=== PATIENT | female | born 1940 | race Caucasian/White ===

== ENCOUNTER 2016-05-30 07:05 | Emergency (ER) | payer MEDICARE, OTHER ==
[~2016-05-30] VITALS: Ht 157.5 cm; Wt 55.7 kg
[~2016-05-30 07:05] MED LIST: CARD120T4; GLUCTAB
[2016-05-30 07:08] VITALS: PULSE 85; RESP 17; TEMP 98.6; O2SAT 99
[2016-05-30] MEDS ORDERED: SODIUM CHLOR 0.9% 1000 ML INJ 1,000 ML IV SCH (07:23)
--- NOTE | 2016-05-30 07:27 | PD ---
HPI Chief Complaint: Abdominal Pain Time Seen by Provider: 07:18 Travel History International Travel<30 days: No Contact w/Intl Traveler<30days: No Traveled to known affect area: No History of Present Illness HPI The patient is a 76-year-old female who presents emergency department for abdominal pain. The patient states her abdominal pain started last night while she was sitting down, reading a book. The abdominal pain is epigastric, burning, nonradiating, and constant. The patient states she took Tums this morning with subsequent nausea and vomiting, but the nausea and vomiting have resolved. The patient denies any diarrhea or change in bowel habits. The patient denies any history of previous abdominal surgeries. Patient denies any history pancreatitis, biliary colic, or AAA. The patient denies any associated chest pain or shortness of breath. The patient denies any dysuria, frequency, or urgency, notes a prolonged history of urinating at night. The patient's primary physician is Ute Houser. The patient does have a history of diabetes for which she takes Janumet. PFSH Past Medical History Diabetes: Yes Hypertension: Yes ?: Not LMP: [employer] Social History Alcohol Use: No Tobacco Use: No Substance Use: No Allergies-Medications (Allergen,Severity, Reaction): Coded Allergies: Lyrica (Verified Allergy, Mild, 05/30/16) Sulfa (Verified Allergy, Mild, 05/30/16) Reported Meds & Prescriptions Reported Meds & Active Scripts Active Reported Aspirin 81 Mg Tabdr 81 Mg PO DAILY [blood pressure med#2] Unknown Strength Unknown Dose PO DAILY [blood pressure med] Unknown Strength Unknown Dose PO DAILY Pravastatin Unknown Strength Tab Unknown Dose PO DAILY Januvia (Sitagliptin Phosphate) Unknown Strength Tab Unknown Dose PO DAILY Review of Systems Except as stated in HPI: all other systems reviewed are Neg General / Constitutional: No: Fever Cardiovascular: No: Chest Pain or Discomfort Respiratory: No: Shortness of Breath Gastrointestinal: Positive: Nausea, Vomiting (after taking Tums), Abdominal Pain, No: Diarrhea, Changes in Bowel Habits Genitourinary: Positive: Frequency (at night, has been happening for years), No: Dysuria Skin: No Rash Physical Exam Narrative GENERAL: Awake, alert, pleasant 76-year-old female who appears her stated age and is in no acute respiratory distress. SKIN: Focused skin assessment warm/dry. HEAD: Atraumatic. Normocephalic. EYES: No injection or drainage. ENT: No nasal bleeding or discharge. Mucous membranes pink and moist. NECK: Trachea midline. No JVD. CARDIOVASCULAR: Regular rate and rhythm. No murmur appreciated. RESPIRATORY: No accessory muscle use. Clear to auscultation. Breath sounds equal bilaterally. GASTROINTESTINAL: Abdomen soft, tender palpation epigastrium. Negative Guy' s. Negative McBurney's. No rebound tenderness. MUSCULOSKELETAL: No obvious deformities. No clubbing. No cyanosis. No edema. NEUROLOGICAL: Awake and alert. No obvious cranial nerve deficits. Motor grossly within normal limits. Normal speech. PSYCHIATRIC: Appropriate mood and affect; insight and judgment normal. Data Data Last Documented VS Vital Signs Date Time Temp Pulse Resp B/P Pulse Ox O2 Delivery O2 Flow Rate FiO2 05/30/16 09:19 86 16 138/74 98 Room Air 05/30/16 07:08 98.6 Orders Complete Blood Count With Diff (05/30/16 07:23) Comprehensive Metabolic Panel (05/30/16 07:23) Lipase (05/30/16 07:23) Lactic Acid (05/30/16 07:23) Urinalysis - C+S If Indicated (05/30/16 07:23) Ct Abd/Pel W Iv Contrast(Rout) (05/30/16 07:23) Iv Access Insert/Monitor (05/30/16 07:23) Ecg Monitoring (05/30/16 07:23) Oximetry (05/30/16 07:23) Morphine Inj (Morphine Inj) (05/30/16 07:30) Ondansetron Inj (Zofran Inj) (05/30/16 07:30) Sodium Chlor 0.9% 1000 Ml Inj (Ns 1000 M (05/30/16 07:23) Sodium Chloride 0.9% Flush (Ns Flush) (05/30/16 07:30) Electrocardiogram (05/30/16 07:23) Famotidine Inj (Pepcid Inj) (05/30/16 07:30) Al-Mag Hy-Si 40-40-4 Mg/Ml Liq (Mag-Al P (05/30/16 07:30) Lidocaine 2% Viscous (Xylocaine 2% Visco (05/30/16 07:30) Troponin I (05/30/16 07:23) Labetalol Inj (Trandate Inj) (05/30/16 09:00) Iohexol 350 Inj (Omnipaque 350 Inj) (05/30/16 08:57) Labs Laboratory Tests Test 05/30/16 05/30/16 07:50 08:10 White Blood Count 13.5 TH/MM3 Red Blood Count 4.33 MIL/MM3 Hemoglobin 13.1 GM/DL Hematocrit 39.2 % Mean Corpuscular Volume 90.6 FL Mean Corpuscular Hemoglobin 30.2 PG Mean Corpuscular Hemoglobin 33.3 % Concent Red Cell Distribution Width 12.4 % Platelet Count 242 TH/MM3 Mean Platelet Volume 8.8 FL Neutrophils (%) (Auto) 89.0 % Lymphocytes (%) (Auto) 7.2 % Monocytes (%) (Auto) 2.3 % Eosinophils (%) (Auto) 0.6 % Basophils (%) (Auto) 0.9 % Neutrophils # (Auto) 12.0 TH/MM3 Lymphocytes # (Auto) 1.0 TH/MM3 Monocytes # (Auto) 0.3 TH/MM3 Eosinophils # (Auto) 0.1 TH/MM3 Basophils # (Auto) 0.1 TH/MM3 CBC Comment DIFF FINAL Differential Comment Sodium Level 142 MEQ/L Potassium Level 3.7 MEQ/L Chloride Level 106 MEQ/L Carbon Dioxide Level 22.5 MEQ/L Anion Gap 14 MEQ/L Blood Urea Nitrogen 22 MG/DL Creatinine 0.80 MG/DL Estimat Glomerular Filtration 70 ML/MIN Rate Random Glucose 158 MG/DL Lactic Acid Level 2.1 mmol/L Calcium Level 9.0 MG/DL Total Bilirubin 0.3 MG/DL Aspartate Amino Transf 21 U/L (AST/SGOT) Alanine Aminotransferase 28 U/L (ALT/SGPT) Alkaline Phosphatase 82 U/L Troponin I LESS THAN 0.02 NG/ML Total Protein 7.5 GM/DL Albumin 3.9 GM/DL Lipase 206 U/L Urine Collection Type CLEAN CATCH Urine Color YELLOW Urine Turbidity CLEAR Urine pH 6.0 Urine Specific [place] 1.017 Urine Protein 100 mg/dL Urine Glucose (UA) NEG mg/dL Urine Ketones NEG mg/dL Urine Occult Blood TRACE Urine Nitrite NEG Urine Bilirubin NEG Urine Leukocyte Esterase NEG Urine RBC 10-14 /hpf Urine WBC 0-2 /hpf Urine Squamous Epithelial > 8 /hpf Cells Urine Bacteria FEW /hpf Microscopic Urinalysis Comment CULT NOT INDICATED Urine Collection Time 08:10 [facility] Medical Decision Making Medical Screen Exam Complete: Yes Emergency Medical Condition: Yes Medical Record Reviewed: Yes Interpretation(s) EKG reveals normal sinus rhythm with a rate 88. Short MA interval 106 ms. No delta wave noted. Nonspecific T-wave changes. Laboratory Tests Test 05/30/16 05/30/16 07:50 08:10 White Blood Count 13.5 TH/MM3 Red Blood Count 4.33 MIL/MM3 Hemoglobin 13.1 GM/DL Hematocrit 39.2 % Mean Corpuscular Volume 90.6 FL Mean Corpuscular Hemoglobin 30.2 PG Mean Corpuscular Hemoglobin 33.3 % Concent Red Cell Distribution Width 12.4 % Platelet Count 242 TH/MM3 Mean Platelet Volume 8.8 FL Neutrophils (%) (Auto) 89.0 % Lymphocytes (%) (Auto) 7.2 % Monocytes (%) (Auto) 2.3 % Eosinophils (%) (Auto) 0.6 % Basophils (%) (Auto) 0.9 % Neutrophils # (Auto) 12.0 TH/MM3 Lymphocytes # (Auto) 1.0 TH/MM3 Monocytes # (Auto) 0.3 TH/MM3 Eosinophils # (Auto) 0.1 TH/MM3 Basophils # (Auto) 0.1 TH/MM3 CBC Comment DIFF FINAL Differential Comment Sodium Level 142 MEQ/L Potassium Level 3.7 MEQ/L Chloride Level 106 MEQ/L Carbon Dioxide Level 22.5 MEQ/L Anion Gap 14 MEQ/L Blood Urea Nitrogen 22 MG/DL Creatinine 0.80 MG/DL Estimat Glomerular Filtration 70 ML/MIN Rate Random Glucose 158 MG/DL Lactic Acid Level 2.1 mmol/L Calcium Level 9.0 MG/DL Total Bilirubin 0.3 MG/DL Aspartate Amino Transf 21 U/L (AST/SGOT) Alanine Aminotransferase 28 U/L (ALT/SGPT) Alkaline Phosphatase 82 U/L Troponin I LESS THAN 0.02 NG/ML Total Protein 7.5 GM/DL Albumin 3.9 GM/DL Lipase 206 U/L Urine Collection Type CLEAN CATCH Urine Color YELLOW Urine Turbidity CLEAR Urine pH 6.0 Urine Specific [place] 1.017 Urine Protein 100 mg/dL Urine Glucose (UA) NEG mg/dL Urine Ketones NEG mg/dL Urine Occult Blood TRACE Urine Nitrite NEG Urine Bilirubin NEG Urine Leukocyte Esterase NEG Urine RBC 10-14 /hpf Urine WBC 0-2 /hpf Urine Squamous Epithelial > 8 /hpf Cells Urine Bacteria FEW /hpf Microscopic Urinalysis Comment CULT NOT INDICATED Urine Collection Time 08:10 CT the abdomen and pelvis reveals cholelithiasis. The gallbladder demonstrates multiple stones without gallbladder wall thickening or pericholecystic fluid. Differential Diagnosis Differential diagnosis includes pancreatitis, gastritis, peptic ulcer disease, medication side effect from Janumet, biliary colic, AAA, inferior myocardial infarction. Narrative Course IV was established, labs are drawn and sent, and the patient was placed on cardiac telemetry monitoring and continuous pulse oximetry monitoring. EKG was ordered and interpreted. The patient was administered a GI cocktail, Pepcid, morphine, Zofran, and IV fluids. CT with IV contrast was ordered to evaluate for AAA and pancreatitis. Laboratory evaluation reveals mildly elevated white count, however, LFTs and lipase are unremarkable. CT the abdomen and pelvis reveals cholelithiasis but no gallbladder wall thickening or pericholecystic fluid. Patient may have biliary colic versus gastritis. The patient was reevaluated after CT of the abdomen and pelvis, her symptoms had resolved, her pain was a 0. Patient is stable for outpatient follow-up with her primary physician. She may need general surgery follow-up if she has postprandial symptoms for symptomatically cholelithiasis. Diagnosis Primary Impression: Abdominal pain Qualified Code: R10.13 - Epigastric pain Additional Impression: Cholelithiasis Qualified Code: K80.20 - Calculus of gallbladder without cholecystitis without obstruction Patient Instructions: General Instructions Additional Instructions: Please provide a patient a copy of her CT results and lab results at discharge. Medications as directed. Follow-up with your primary physician. Follow-up with general surgery if you have persistent pain after meals. Return if symptoms worsen or progress. Med/Other Pt SpecificInfo: Prescription(s) given Scripts Ranitidine (Zantac 150 Maximum Strength)150 Mg [id number] Mg PO BID 14 Days Prov:Ata Rivers MD 05/30/16 Hydrocodone-Acetaminophen ([place])5-325 mg Tab1 Tab PO Q6H PRN (PAIN) #12 TAB Ref 0 Prov:Ata Rivers MD 05/30/16 Ondansetron Odt (Zofran Odt)4 Mg Tab4 Mg SL Q6HR PRN (Nausea/Vomiting) #7 TAB Ref 0 Prov:Ata Rivers MD 05/30/16 Disposition: 01 DISCHARGE HOME Condition: Stable Ata Rivers MD May 30, 2016 07:27
[2016-05-30] MEDS ORDERED: MORPHINE SULFATE 4 MG/ML INJ IV PUSH ONE (07:30)
[2016-05-30] MEDS ORDERED: FAMOTIDINE 20 MG/2 ML VIAL IV PUSH ONE (07:30)
[2016-05-30] MEDS ORDERED: ONDANSETRON HCL 4 MG/2 ML VIAL IVP ONE (07:30)
[2016-05-30] MEDS ORDERED: SODIUM CHLORIDE 0.9% FLUSH 10 ML FLUSH IV FLUSH PRN (07:30)
[2016-05-30] MEDS ORDERED: ALUMINUM/MAGNESIUM/SIMETH 30 ML CUP PO ONE (07:30)
[2016-05-30] MEDS ORDERED: LIDOCAINE VISCOUS 2% SOLN 15 ML UDC PO ONE (07:30)
[2016-05-30 07:32] VITALS: RESP 16; O2SAT 99
[2016-05-30] MEDS ORDERED: blood pressure med PO (07:36)
[2016-05-30] MEDS ORDERED: SITA25 PO (07:36)
[2016-05-30] MEDS ORDERED: BLOOD PRESSURE MED PO (07:36)
[2016-05-30] MEDS ORDERED: PRAV10TA PO (07:36)
[2016-05-30 08:00] LABS: BASOPHIL # 0.1 TH/MM3 (0-0.2); BASOPHIL % 0.9 % (0.0-2.0); EOSINOPHIL # 0.1 TH/MM3 (0-0.4); EOSINOPHIL % 0.6 % (0.0-4.0); HEMATOCRIT 39.2 % (35.0-46.0); HEMO FLAGS DIFF FINAL; LYMPH % 7.2 % (9.0-44.0); MEAN CELL VOLUME 90.6 FL (80.0-100.0); MEAN CORPUSCULAR HEMOGLOBIN 30.2 PG (27.0-34.0); MEAN CORPUSCULAR HGB CONC 33.3 % (32.0-36.0); MONO % 2.3 % (0.0-8.0); PLATELET COUNT 242 TH/MM3 (150-450); RED BLOOD COUNT 4.33 MIL/MM3 (4.00-5.30); RED CELL DISTRIBUTION WIDTH 12.4 % (11.6-17.2); WHITE BLOOD COUNT 13.5 TH/MM3 (4.0-11.0)
[2016-05-30 08:08] LABS: CHLORIDE 106 MEQ/L (98-107); POTASSIUM 3.7 MEQ/L (3.5-5.1); SODIUM (NA) 142 MEQ/L (136-145)
[2016-05-30 08:12] LABS: ANION GAP 14 MEQ/L (5-15); BICARBONATE 22.5 MEQ/L (21.0-32.0)
[2016-05-30 08:13] LABS: BLOOD UREA NITROGEN 22 MG/DL (7-18)
[2016-05-30 08:15] LABS: ALT (GPT) 28 U/L (10-53); AST (GOT) 21 U/L (15-37); GLOMERULAR FILTRATION RATE 70 ML/MIN (>89)
[2016-05-30 08:17] LABS: TOTAL BILIRUBIN ADULT 0.3 MG/DL (0.2-1.0)
[2016-05-30 08:18] LABS: ALKALINE PHOSPHATASE 82 U/L (45-117)
[2016-05-30 08:23] LABS: BLOOD, URINE TRACE (NEG); GLUCOSE,URINE NEG (NEG); KETONE, URINE NEG (NEG); NITRITE,URINE NEG (NEG)
[2016-05-30 08:24] LABS: METHOD OF COLLECTION CLEAN CATCH; URINE COLOR YELLOW (YELLW/STRAW)
[2016-05-30 08:25] LABS: BACTERIA, URINE FEW /hpf; COMMENT (UR) CULT NOT INDICATED; CULTURE IF INDICATED CULT NOT INDICATED; SQUAMOUS EPITHELIAL CELL URINE > 8 /hpf (0-5); WBC, URINE 0-2 /hpf (0-5)
[2016-05-30 08:35] VITALS: BP 199/105; PULSE 100; RESP 16; O2SAT 99
[2016-05-30 08:54] VITALS: BP 211/83; PULSE 90; RESP 16; O2SAT 99
[2016-05-30] MEDS ORDERED: IOHEXOL 350 MG/ML 10 ML VIAL (for RAD DIAG) IV ONE (08:57)
[2016-05-30] MEDS ORDERED: LABETALOL HCL 100 MG/20 ML VIAL IV PUSH ONE (09:00)
[2016-05-30] MEDS ORDERED: ASPI1TAB69 PO (09:01)
[2016-05-30 09:12] VITALS: BP 204/95; PULSE 88; RESP 16; O2SAT 100
[2016-05-30 09:19] VITALS: BP 138/74; PULSE 86; RESP 16; O2SAT 98
--- NOTE | 2016-05-30 09:43 | RADHPO ---
EXAM DATE/TIME: 05/30/2016 08:34 [place] COMPARISON: No previous studies available for comparison. INDICATIONS : Right upper epigrastic pain. IV CONTRAST: 93 cc Omnipaque 350 (iohexol) IV ORAL CONTRAST: No oral contrast ingested. RADIATION DOSE: 5.98 CTDIvol (mGy) MEDICAL HISTORY : Hypertension. SURGICAL HISTORY : None. ENCOUNTER: Initial ACUITY: 1 day PAIN SCALE: 5/10 LOCATION: Right abdomen TECHNIQUE: Volumetric scanning of the abdomen and pelvis was performed. Using automated exposure control and adjustment of the mA and/or kV according to patient size, radiation dose was kept as low as reasonably achievable to obtain optimal diagnostic quality images. FINDINGS: CT Abdomen: The liver, spleen, pancreas, kidneys, adrenals are unremarkable. There is no evidence for any appreciable pathological adenopathy, free fluid, or bowel obstruction. Chronic vascular calcifi cations are present involving the aorta, iliac arteries without any significant stenosis or aneurysma l dilatations for technique. The gallbladder demonstrates multiple stones without gallbladder wall th ickening, or pericholecystic fluid. CT pelvis: There is no evidence for mass, abscess formation, or any significant adenopathy within the pelvis. There are degenerative changes and possible bulging discs in the lower lumbosacral spine not adequately characterized in addition to lumbar scoliosis convexity towards the left. The appendix ap pears intact without definite signs of appendicitis. CONCLUSION: Cholelithiasis. Lilia Schmitz MD on May 30, 2016 at 9:39 Board Certified Radiologist. This report was verified electronically.
[2016-05-30] MEDS ORDERED: NORC5TAB PO (09:47)
[2016-05-30] MEDS ORDERED: ZOFR4TAB3 SL (09:47)
[2016-05-30] MEDS ORDERED: ZANTTAB PO (09:47)
--- NOTE | 2016-05-30 14:39 | EKG ---
Date Performed: 05/30/2016 Time Performed: 07:28:34 PTAGE: 76 years EKG: Sinus rhythm Short DE interval Lateral T wave changes are nonspecific Since previous tracing, no significant covarrubias ge noted Borderline ECG PREVIOUS TRACING : 12/04/2003 15.23 DOCTOR: Liban Inman Interpretating Date/Time 05/30/2016 14:38:50
== END 2016-05-30 10:18 | disposition home or self-care (01) ==
LOC: PHED 07:05
DX: R10.13 Epigastric pain (principal); K80.20 Calculus of gallbladder without cholecystitis without obstruction; R94.31 Abnormal electrocardiogram [ECG] [EKG]; E11.9 Type 2 diabetes mellitus without complications; I10 Essential (primary) hypertension; Z79.84 Long term (current) use of oral hypoglycemic drugs
CPT/HCPCS: 74177; 80053; 81001; 83605; 83690; 84484; 85025; 93005; 96361; 96374; 96375; 99284; J2270; J2405; J7030; Q9967

== ENCOUNTER → 2016-07-06 | Day surgery (SDC) | payer MEDICARE, OTHER ==
[~2016-07-06] MED LIST changes: +ACETAMINOPHEN 1000 MG/100 ML VIAL IV ONE; +ACETAMINOPHEN/HYDROcodone 325 MG/5 MG TAB ONE; +APREPITANT 40 MG CAP ONE; +ASPI1TAB69 PO; +BLOOD PRESSURE MED PO; +BUPIVACAINE/EPINEPHRINE 0.25% 50 ML VIAL ONE; -CARD120T4; -GLUCTAB; +LACTATED RINGER'S 1000 ML INJ 1,000 ML ONE; +MEPERIDINE HCL 25 MG/ML VIAL ONE; +MIDAZOLAM HCL 2 MG/2 ML VIAL ONE; +MORPHINE SULFATE 4 MG/ML INJ ONE; +NORC5TAB PO; +ONDANSETRON HCL 4 MG/2 ML VIAL IV PUSH ONE; +PRAV10TA PO; +PROPOFOL 200 MG/20 ML AMP IV ONE; +SITA25 PO; +ZANTTAB PO; +ZOFR4TAB3 SL; +blood pressure med PO; +ceFAZolin 2 GM PREMIX 50 ML ONE; +metroNIDAZOLE 500 MG INJ 100 ML IV ONE
--- NOTE | 2016-07-06 12:08 | TN ---
cc: ADITYA LOPEZ M.D. Corrected Copy: 07/07/16 DATE OF SURGERY 07/06/2016 PREOPERATIVE DIAGNOSIS Calculous cholecystitis. POSTOPERATIVE DIAGNOSIS Severe acute and chronic calculous cholecystitis. PROCEDURE Laparoscopic cholecystectomy. SURGEON Dr. Aditya Lopez MACHINE UMBRELLA TIPPER Aisha Crane, LIFE AGENT ANESTHESIA General endotracheal. INDICATIONS This is a really pleasant 76-year-old woman who has had several episodes of severe abdominal pain associated with nausea waking her from a sleep. She was found on emergency department evaluation to have an elevated white count with a left shift and a CT scan which demonstrated gallstones without acute inflammatory changes. She went home with Cipro and pain meds. Ten days later an ultrasound showed multiple gallstones and gallbladder wall thickening to 8 mm. She has had persistent less severe pain and nausea. She is interested in proceeding with laparoscopic cholecystectomy upon my encouragement. INTRAOPERATIVE FINDINGS Severe acute and chronic inflammatory changes of the gallbladder. The gallbladder could not be grasped with graspers, had to be decompressed. A fourth incision for an additional 5-mm trocar for retraction was required. The gallbladder-cystic duct junction was acutely and chronically inflamed. This procedure was assisted by my nurse practitioner. The skill set of an LIFE AGENT was medically necessary to provide visualization and efficiency to the completion of the surgery. The nurse tech was at the back table providing instrumentation while the nurse practitioner was directly assisting me through the entirety of the procedure. ESTIMATED BLOOD LOSS Less than 25 mL. DESCRIPTION OF PROCEDURE IN DETAIL The patient was identified as Daiana Mcclure, taken to the operating room and placed in supine position. Sequential compression devices were placed on bilateral lower extremities. Following induction of adequate general endotracheal anesthesia, the patient's abdomen was prepped and draped in the usual sterile fashion with Betadine. A time-out procedure was performed. Following completion of the time-out procedure to everyone's satisfaction within the room, 0.25% Marcaine with epinephrine was injected at the infraumbilical position and an infraumbilical midline 2-cm incision was carried out with scalpel. Dissection continued posteriorly to the level of the infraumbilical midline fascia. The base of the umbilicus was retracted anteriorly. The fascia was incised in vertical fashion allowing for entry into the peritoneal cavity with a hemostat and the surgeon's finger. The [employer] balloon Keily trocar was placed in the peritoneal cavity, its balloon inflated with CO2 insufflation until a level of 15 mmHg ensued. The patient was placed in a reverse Trendelenburg position. Two upper abdominal midline 5-mm and right lateral 5-mm trocar was then placed in the peritoneal cavity under direct laparoscopic view after incision of the skin with a scalpel. The gallbladders was acutely inflamed. Inflammatory adhesions of the omentum were taken down. The gallbladder was so inflamed, it could not be grasped. It was decompressed at its apex with an opening made by the harmonic scalpel and bile suctioned out with the suction irrigation device. This gave a point of grasping to allow for dissecting the gallbladder from the gallbladder fossa in a dome-down technique using the harmonic scalpel. A Janiya-Flex liver retractor aided in the exposure. Careful dissection down at the bottom of the gallbladder towards the gallbladder-cystic duct junction was performed using suction dissection and the harmonic scalpel. Identification of the anatomic structures in this location was made very difficult by a chronic inflammatory changes and, after careful continued dissection and visualization as determined placing a 0-PDS Endoloop across the structure and ran to the gallbladder was important. Once the Endoloop had been put down, the gallbladder was divided about 2 cm from the ligature and even identifying a cystic duct on the surface of the divided gallbladder was difficult. The gallbladder was placed into an Endo-retriever bag and removed through the infraumbilical fascial port incision site which had to be extended at the location of the fascial level and the skin to allow for removal of the significantly distended gallbladder with gallstones. The gallbladder was passed off the field for pathologic evaluation. The right upper quadrant was copiously irrigated with saline and suctioned out. There were a few small areas of oozing surface which were covered in Joaquina absorbable hemostatic agent. The ligature remained intact. There was no bilious drainage. A brief survey of the remainder of the intraabdominal contents demonstrated no obvious abnormalities. The trocars were removed under direct visualization. There was no evidence of bleeding from trocar sites. The abdomen was desufflated through the infraumbilical port which was then removed. The infraumbilical fascial incision was closed with multiple interrupted 0 Vicryl sutures placed in [id number] fashion. All skin incisions were copiously irrigated with saline. Skin incisions were approximated 4-0 Monocryl subcuticular sutures. Dressings were applied with Mastisol and 1/2-inch brown Steri-Strips. Gauze and Tegaderm were placed over the infraumbilical incision. The patient tolerated the procedures without apparent complication. Sponge, needle and instrument counts were correct at the end of the case. MD JULIANA Yuen/BOBBY /11:46 AM /11:49 AM MTDCelestina
== END | disposition home or self-care (01) ==
LOC: ESDC 08:31
PROVIDERS: ATTEND Surgery Trauma Surgery
DX: K80.10 Calculus of gallbladder with chronic cholecystitis without obstruction (principal)
CPT/HCPCS: 00790; 47562; 88304; J0131; J0690; J2175; J2250; J2270; J2405; J3010; J7120; J8501